=== PATIENT | female | born 1950 ===

== ENCOUNTER 2025-04-14 13:14 | Day surgery (SDC) | payer MEDICARE ==
[~2025-04-14 13:14] MED LIST: AMLO5 PO; CLOP75 PO; DONEPEZIL HCL10 MG PO; Flonase 0.05% N16 GM; LOSA50 PO; MEMA5TAB PO; TRAZ50 PO
[2025-04-14 14:30] VITALS: BP 171/79
--- NOTE | 2025-04-14 14:38 | NUR ---
04/14/25 1438 Maren Lyon CONFIRMED AND REVIEWED H&P, MEDCICATIONS, ALLERGIES, MEDICAL HISTORY, RESPIRATORY HISTORY, VITAL SIGNS, 3-LEAD EKG, CONSENTS, AND PHYSICIAN ORDERS. PT HR 40'S AND REPORTS CP 2 NIGHTS AGO-ANESTHESIA CONSULT REQUESTED.
--- NOTE | 2025-04-14 14:46 | NUR ---
Ambulatory in Day Surgery. Brother, Franck, at bedside who provided history and answered questions. Patient states colon prep results clear. History, Chart, Medications and Allergies reviewed before start of procedure. Brother states, when pt came to live with him, a CPAP was in her belongings, but that she had never been diagnosed with sleep apnea to his knowledge. She is scheduled to have a sleep study next month. Discussed with sedation nurse who requested anesthesia consult. Updated pt and her brother.
[2025-04-14 15:57] VITALS: BP 154/88
[2025-04-14 16:10] VITALS: BP 167/86
--- NOTE | 2025-04-14 16:44 | NUR ---
Discharge instructions reviewed with patient. Patient verbalizes understanding. Copy given to patient to take home. Pt skipped their moirning BP medication, will resume as perscribed. Patient States Post-Procedure ride home has been arranged. Discharged via wheelchair to private car for ride home.
[2025-04-14] MEDS ORDERED: Glycopyrrolate 0.2 MG/ML 5ML VIAL XX ONE (17:17)
== END 2025-04-14 16:40 | disposition home or self-care (01) ==
LOC: ORSCMMR 13:14 → ORD 14:30 → ORSCMMR 14:30
PROVIDERS: Family Medicine
PROC: 3E0H8KZ Introduction of Other Diagnostic Substance into Lower GI, Via Natural or Artificial Opening Endoscopic (ICD-10-PCS; principal; 2025-04-14 14:30)
PROC: 0DBH8ZX Excision of Cecum, Via Natural or Artificial Opening Endoscopic, Diagnostic (ICD-10-PCS; principal; 2025-04-14 14:30)
PROC: 0DBL8ZX Excision of Transverse Colon, Via Natural or Artificial Opening Endoscopic, Diagnostic (ICD-10-PCS; principal; 2025-04-14 14:30)
DX: Z12.11 Encounter for screening for malignant neoplasm of colon (principal); D12.3 Benign neoplasm of transverse colon; D12.5 Benign neoplasm of sigmoid colon; D12.0 Benign neoplasm of cecum; K64.8 Other hemorrhoids; K64.4 Residual hemorrhoidal skin tags; I10 Essential (primary) hypertension; E11.9 Type 2 diabetes mellitus without complications; K21.9 Gastro-esophageal reflux disease without esophagitis; G47.33 Obstructive sleep apnea (adult) (pediatric); E78.5 Hyperlipidemia, unspecified; F32.A Depression, unspecified; F41.9 Anxiety disorder, unspecified; Z79.899 Other long term (current) drug therapy
CPT/HCPCS: 82947; 88305; J2704; J7120